=== PATIENT | female | born 1965 | race Two or more races ===

== ENCOUNTER 2017-02-03 10:17 | Emergency (ER) | payer MEDICAID, OTHER ==
[~2017-02-03] VITALS: Ht 157.5 cm; Wt 85.3 kg
[2017-02-03 10:57] VITALS: BP 136/81
[2017-02-03 12:01] LABS: Basophils # (auto) 0 uL; Basophils % (auto) 0.1 % (0.0-2.0); DEFINITIVE VIEW TRANSMISSION; Eosinophils # (auto) 0 uL; Hematocrit 36.4 % (36.0-46.0); Hemoglobin 11.6 g/dL (12.2-16.2); Lymphocytes # (auto) 1.5 uL; Lymphocytes % (auto) 6.6 % (10.0-50.0); Mean Corpuscular Hemoglobin 23.7 pg (28.0-32.0); Mean Corpuscular Hgb Conc. 31.9 g/dL (32.0-36.0); Mean Corpuscular Volume 74.4 fL (80.0-100.0); Mean Platelet Volume 8.2 fL (7.4-10.4); Monocytes # (auto) 0.9 uL; Neutrophils # (auto) 20.4 uL; Neutrophils % (auto) 89.3 % (37.0-80.0); Platelet Count (auto) 486 10^3/uL (140-450); Red Cell Distribution Width 16.4 % (11.6-16.0); White Blood Cell 22.8 10^3/uL (4.4-10.8)
[2017-02-03] MEDS ORDERED: LIDOCAINE VISCOUS 2% 15ML UD PO ONE (13:00)
[2017-02-03 13:13] LABS: Albumin 3.3 g/dL (3.4-5.0); BUN/Creatinine Ratio 9.2; Bilirubin, Total 0.4 mg/dL (0.2-1.0); Potassium 3.9 mmol/L (3.5-5.1); Total Protein 8.6 g/dL (6.4-8.2)
[2017-02-03 14:49] LABS: Urine Bilirubin Negative (Negative); Urine Color Yellow (Yellow); Urine Ketone Negative (Negative); Urine Nitrite Negative (Negative); Urine RBC 1 /hpf (0 - 4); Urine Squamous Epithelial Cell FEW /hpf (<5); Urine Urobilinogen Normal (Negative); Urine pH 6.5 (5.0-8.0)
[2017-02-03 14:58] LABS: Urine Blood 1+ /uL (Negative); Urine Glucose 3+ mg/dL (Normal)
== END 2017-02-03 15:11 | disposition home or self-care (01) ==
LOC: ER 10:32
DX: J03.90 Acute tonsillitis, unspecified (principal); E11.9 Type 2 diabetes mellitus without complications
CPT/HCPCS: 36415; 71020; 80053; 81001; 85025

== ENCOUNTER 2018-05-13 16:45 | Inpatient (IN) | payer SELFPAY ==
[~2018-05-13] VITALS: Ht 154.9 cm; Wt 78.6 kg
[2018-05-13 17:49] LABS: Basophils % (auto) 0.6 % (0.0-2.0); Eosinophils # (auto) 0.1 uL; Monocytes # (auto) 0.5 uL; White Blood Cell 8.5 10^3/uL (4.4-10.8)
[2018-05-13 17:51] LABS: Basophils # (auto) 0 uL; Eosinophils % (auto) 0.8 % (0.0-7.0); Hematocrit 23.2 % (36.0-46.0); Lymphocytes # (auto) 2.3 uL; Lymphocytes % (auto) 26.9 % (10.0-50.0); Mean Corpuscular Hemoglobin 15.3 pg (28.0-32.0); Mean Corpuscular Volume 54.7 fL (80.0-100.0); Monocytes % (auto) 5.5 % (0.0-12.0); Neutrophils # (auto) 5.6 uL; Neutrophils % (auto) 66.2 % (37.0-80.0); Nucleated Red Blood Cells % 0.1 %; Platelet Count (auto) 284 10^3/uL (140-450); Red Blood Cells 4.24 10^6/uL (4.0-5.20)
[2018-05-13 17:58] LABS: Red Cell Distribution Width 22.2 % (11.8-14.3)
[2018-05-13] MEDS ORDERED: ASPirin 81 mg TAB PO ONE (18:00)
[2018-05-13 18:01] LABS: Hemoglobin 6.5 g/dL (12.2-16.2)
[2018-05-13 18:02] LABS: Alanine Aminotransferase 26 U/L (13-56); Albumin 3.1 g/dL (3.4-5.0); Alkaline Phosphatase 161 U/L (45-117); Anion Gap 8 (5-15); Aspartate Aminotransferase 23 U/L (15-37); BUN/Creatinine Ratio 15.9; Bilirubin, Total 0.2 mg/dL (0.2-1.0); Blood Urea Nitrogen 10 mg/dL (7-18); Calcium 8.8 mg/dL (8.5-10.1); Carbon Dioxide 27 mmol/L (21-32); Chloride 102 mmol/L (98-107); GFR African American 129 mL/min; GFR Non-African American 106 mL/min; Glucose 291 mg/dL (74-106); Magnesium 2.2 mg/dL (1.6-2.6); Potassium 3.7 mmol/L (3.5-5.1); Sodium 137 mmol/L (136-145); Total Protein 7.8 g/dL (6.4-8.2)
[2018-05-13 18:09] LABS: Urine Bacteria FEW /hpf (None Seen); Urine Blood Negative /uL (Negative); Urine Budding Yeast FEW /hpf (None Seen); Urine Specific Gravity 1.027 (1.001-1.035); Urine WBC 4 /hpf (0 - 5)
[2018-05-13 18:13] LABS: INR 0.92 (0.9-1.15); Partial Thromboplastin Time 23.5 sec (23.78-33.04); Prothrombin Time 9.9 sec (9.27-12.13)
[2018-05-13] MEDS ORDERED: NITROGLYCERIN 0.4 MG SL TAB SL PRN (18:15)
[2018-05-13] MEDS ORDERED: LORazepam 0.5 MG TAB PO PRN (18:15)
[2018-05-13] MEDS ORDERED: MORPHINE SULF(PF) 0.5MG/ML 10ML VIAL IV PRN (18:15)
[2018-05-13] MEDS ORDERED: PANTOPRAZOLE 40 MG/10 ML VIAL IV ONE (18:15)
[2018-05-13] MEDS ORDERED: ACETAMINOPHEN 500 MG TAB PO PRN (18:15)
[2018-05-13] MEDS ORDERED: DEXTROSE (50%) 50ML SYRG IV PRN (18:15)
[2018-05-13] MEDS ORDERED: TEMAZEPAM 15 MG CAP PO PRN (18:15)
[2018-05-13] MEDS ORDERED: LACTULOSE 20Gm/30ML SOLN PO PRN (18:15)
[2018-05-13] MEDS ORDERED: HYDROcodone-ACET 5/325MG TAB PO PRN (18:15)
[2018-05-13] MEDS ORDERED: LABETALOL HCL 5 MG/ML ML 20ML VIAL IV PRN (18:15)
[2018-05-13] MEDS: SODIUM CHLORIDE 0.9% 1,000 ML IV SCH ×2 (18:38→20:23)
[2018-05-13 19:08] LABS: Alcohol, Urine < 3.0 mg/dL (0-5); Amphetamine Screen, Urine NEGATIVE (NEGATIVE); Barbiturate Scree,Urine NEGATIVE (NEGATIVE); Benzodiazephine Screen, Urine NEGATIVE (NEGATIVE); Cannabinoid Screen, Urine NEGATIVE (NEGATIVE); Cocaine Screen, Urine NEGATIVE (NEGATIVE); Opiate Scree,Urine NEGATIVE (NEGATIVE); Phencyclidine Screen, Urine NEGATIVE (NEGATIVE)
[2018-05-13 19:09] LABS: % Iron Saturation 2.8 % (15-50)
[2018-05-13] MEDS ORDERED: LORazepam 2MG/ML-1ML VIAL IV PRN (19:15)
[2018-05-13 19:21] LABS: Carcinoembryonic Antigen 1.63 ng/mL (<5.0 OR =); Folate (Folic Acid) 15.69 ng/mL (5.38-24)
[2018-05-13 19:47] LABS: CRP High Sensitivity 2.17 mg/dL (< 0.3)
[2018-05-13] MEDS: ACCU-CHEK COMFORT CURVE STRIP VI SCH ×2 (20:24→23:34)
[2018-05-13] MEDS: InsuLIN REG 1unit/0.01ml Soln (100units/ml) SC SCH ×2 (20:24→23:34)
[2018-05-13 20:40] LABS: Cholesterol 121 mg/dL (< 200); HDL Cholesterol 26 mg/dL (40-59); LDL Cholesterol 78 mg/dL (< 100); Triglycerides 228 mg/dL (< 150)
[2018-05-13 21:32] VITALS: BP 131/73
[2018-05-13 21:42] VITALS: BP 131/73
[2018-05-13 21:45] VITALS: BP 116/66
[2018-05-13] MEDS ORDERED: ATORVASTATIN 20 MG TAB PO SCH (22:00)
[2018-05-13] MEDS: ATORVASTATIN 20 MG TAB PO SCH (22:16)
[2018-05-13 22:37] VITALS: BP 153/88
[2018-05-13 23:36] VITALS: BP 134/80
[2018-05-13 23:43] VITALS: BP 128/76
[2018-05-14] VITALS (7 sets, daily range): BP systolic 129–155; BP diastolic 44–87
[2018-05-14] MEDS: ACCU-CHEK COMFORT CURVE STRIP VI SCH ×5 (05:00→20:58)
[2018-05-14] MEDS: InsuLIN REG 1unit/0.01ml Soln (100units/ml) SC SCH ×5 (05:00→20:58)
[2018-05-14 06:13] LABS: Basophils # (auto) 0 uL; Eosinophils # (auto) 0.1 uL; Hematocrit 31.1 % (36.0-46.0); Hemoglobin 9.2 g/dL (12.2-16.2); Mean Corpuscular Hgb Conc. 29.6 g/dL (32.0-36.0); Monocytes # (auto) 0.4 uL; Neutrophils # (auto) 5.8 uL; Neutrophils % (auto) 69.8 % (37.0-80.0); Nucleated Red Blood Cells % 0.2 %; White Blood Cell 8.3 10^3/uL (4.4-10.8)
[2018-05-14 06:15] LABS: Basophils % (auto) 0.4 % (0.0-2.0); Lymphocytes % (auto) 23.9 % (10.0-50.0); Mean Corpuscular Hemoglobin 18.2 pg (28.0-32.0); Mean Corpuscular Volume 61.5 fL (80.0-100.0); Monocytes % (auto) 4.9 % (0.0-12.0); Platelet Count (auto) 276 10^3/uL (140-450); Red Blood Cells 5.05 10^6/uL (4.0-5.20)
[2018-05-14 06:45] LABS: Cholesterol 123 mg/dL (< 200); HDL Cholesterol 30 mg/dL (40-59); LDL Cholesterol 85 mg/dL (< 100); Triglycerides 146 mg/dL (< 150)
[2018-05-14] MEDS: ASPirin-EC 81 mg tab PO SCH (10:04)
[2018-05-14] MEDS: PANTOPRAZOLE 40 MG TAB PO SCH (10:04)
[2018-05-14] MEDS ORDERED: CAPTOPRIL 25 MG TAB PO PRN (11:30)
[2018-05-14 12:13] LABS: Hematocrit 28.7 % (36.0-46.0); Hemoglobin 8.4 g/dL (12.2-16.2)
[2018-05-14] MEDS: SODIUM CHLORIDE 0.9% 1,000 ML IV SCH (20:58)
[2018-05-14] MEDS: ATORVASTATIN 20 MG TAB PO SCH (21:03)
[2018-05-15] MEDS: InsuLIN REG 1unit/0.01ml Soln (100units/ml) SC SCH ×7 (00:38→23:58)
[2018-05-15] MEDS: SODIUM CHLORIDE 0.9% 1,000 ML IV SCH ×3 (00:38→20:15)
[2018-05-15] MEDS: ACCU-CHEK COMFORT CURVE STRIP VI SCH ×7 (03:52→23:58)
[2018-05-15 06:24] VITALS: BP 140/77
[2018-05-15 08:09] LABS: Basophils # (auto) 0 uL; Eosinophils # (auto) 0.1 uL; Hemoglobin 8.4 g/dL (12.2-16.2); Monocytes # (auto) 0.5 uL; White Blood Cell 8.5 10^3/uL (4.4-10.8)
[2018-05-15 08:13] LABS: Basophils % (auto) 0.3 % (0.0-2.0); Eosinophils % (auto) 1.3 % (0.0-7.0); Hematocrit 28.6 % (36.0-46.0); Lymphocytes # (auto) 2.3 uL; Lymphocytes % (auto) 27.6 % (10.0-50.0); Mean Corpuscular Hemoglobin 17.8 pg (28.0-32.0); Mean Corpuscular Hgb Conc. 29.3 g/dL (32.0-36.0); Mean Corpuscular Volume 60.7 fL (80.0-100.0); Monocytes % (auto) 5.7 % (0.0-12.0); Neutrophils # (auto) 5.6 uL; Neutrophils % (auto) 65.1 % (37.0-80.0); Nucleated Red Blood Cells % 0.2 %; Platelet Count (auto) 250 10^3/uL (140-450); Red Blood Cells 4.72 10^6/uL (4.0-5.20)
[2018-05-15] MEDS: ASPirin-EC 81 mg tab PO SCH (08:23)
[2018-05-15] MEDS: PANTOPRAZOLE 40 MG TAB PO SCH (08:23)
[2018-05-15 08:26] LABS: Red Cell Distribution Width 31.6 % (11.8-14.3)
[2018-05-15 08:29] LABS: BUN/Creatinine Ratio 19.6; Calcium 8.5 mg/dL (8.5-10.1); Potassium 3.7 mmol/L (3.5-5.1)
[2018-05-15 09:00] VITALS: BP 131/71
[2018-05-15 13:00] VITALS: BP 135/91
[2018-05-15] MEDS ORDERED: METF-370 PO (16:17)
[2018-05-15] MEDS ORDERED: ASPI-231 PO (16:19)
[2018-05-15] MEDS ORDERED: GLIP-115 PO (16:19)
[2018-05-15 17:00] VITALS: BP 134/75
[2018-05-15 22:00] VITALS: BP 136/60
[2018-05-15] MEDS: ATORVASTATIN 20 MG TAB PO SCH (22:04)
[2018-05-16] MEDS: ACCU-CHEK COMFORT CURVE STRIP VI SCH ×4 (04:00→16:17)
[2018-05-16] MEDS: InsuLIN REG 1unit/0.01ml Soln (100units/ml) SC SCH ×4 (04:35→16:17)
[2018-05-16 05:10] VITALS: BP 131/65
[2018-05-16] MEDS: SODIUM CHLORIDE 0.9% 1,000 ML IV SCH ×2 (05:47→16:17)
[2018-05-16] MEDS: ASPirin-EC 81 mg tab PO SCH (08:11)
[2018-05-16 08:12] LABS: Basophils # (auto) 0 uL; White Blood Cell 8.2 10^3/uL (4.4-10.8)
[2018-05-16] MEDS: PANTOPRAZOLE 40 MG TAB PO SCH (08:12)
[2018-05-16 08:14] LABS: Basophils % (auto) 0.6 % (0.0-2.0); Eosinophils # (auto) 0.1 uL; Eosinophils % (auto) 1.4 % (0.0-7.0); Hematocrit 29.6 % (36.0-46.0); Hemoglobin 8.6 g/dL (12.2-16.2); Lymphocytes % (auto) 24.7 % (10.0-50.0); Mean Corpuscular Hemoglobin 17.7 pg (28.0-32.0); Mean Corpuscular Volume 61.1 fL (80.0-100.0); Monocytes # (auto) 0.5 uL; Monocytes % (auto) 5.8 % (0.0-12.0); Neutrophils # (auto) 5.5 uL; Neutrophils % (auto) 67.5 % (37.0-80.0); Nucleated Red Blood Cells % 0.1 %; Platelet Count (auto) 255 10^3/uL (140-450); Red Blood Cells 4.85 10^6/uL (4.0-5.20)
[2018-05-16 08:18] LABS: Red Cell Distribution Width 31.8 % (11.8-14.3)
[2018-05-16 08:29] LABS: BUN/Creatinine Ratio 25.5; Calcium 8.4 mg/dL (8.5-10.1)
[2018-05-16 09:00] VITALS: BP 114/62
[2018-05-16] MEDS ORDERED: LORazepam 2MG/ML-1ML VIAL IV ONE (11:30)
[2018-05-16 13:00] VITALS: BP 135/74
[2018-05-16 17:00] VITALS: BP 151/78
== END 2018-05-16 17:26 | disposition home or self-care (01) | DRG 761 ==
LOC: ER 16:45 → TELE 16:46 → DOU IN ICU 22:38 → TELE-CENTR 05-14 16:52
PROVIDERS: ADMIT Internal Medicine; ATTEND Internal Medicine
PROC: 30233N1 Transfusion of Nonautologous Red Blood Cells into Peripheral Vein, Percutaneous Approach (ICD-10-PCS; principal; 2018-05-13)
DX: N92.0 Excessive and frequent menstruation with regular cycle (principal); D64.9 Anemia, unspecified; E11.65 Type 2 diabetes mellitus with hyperglycemia; E66.9 Obesity, unspecified; Z68.32 Body mass index [BMI] 32.0-32.9, adult; F17.210 Nicotine dependence, cigarettes, uncomplicated; I10 Essential (primary) hypertension; Z79.82 Long term (current) use of aspirin; Z79.899 Other long term (current) drug therapy; Z86.73 Personal history of transient ischemic attack (TIA), and cerebral infarction without residual deficits; Z83.3 Family history of diabetes mellitus
CPT/HCPCS: 36415; 36430; 70450; 70551; 71045; 76830; 76856; 80048; 80053; 80061; 80307; 81001; 82150; 82270; 82378; 82550; 82607; 82746; 82962; 83036; 83540; 83550; 83690; 83735; 84443; 84484; 85014; 85018; 85025; 85045; 85610; 85652; 85730; 86141; 86850; 86900; 86901; 86920; 87081; 93005; 93306; 93886; 94660; 94761; 96374; 99291; C9113; J1815

== ENCOUNTER 2018-12-26 11:04 | Emergency (ER) | payer MEDICAID ==
[~2018-12-26] VITALS: Ht 157.5 cm; Wt 81.6 kg
[~2018-12-26 11:04] MED LIST: ASPI-231 PO; GLIP-115 PO; METF-370 PO
[2018-12-26 12:12] LABS: Basophils # (auto) 0.1 uL; Basophils % (auto) 0.9 % (0.0-2.0); Eosinophils # (auto) 0.2 uL; Eosinophils % (auto) 1.8 % (0.0-7.0); Lymphocytes # (auto) 1.6 uL; Neutrophils # (auto) 6.3 uL
[2018-12-26 12:16] LABS: Hematocrit 25.6 % (36.0-46.0); Mean Corpuscular Hemoglobin 22.5 pg (28.0-32.0); Mean Corpuscular Hgb Conc. 31.2 g/dL (32.0-36.0); Mean Corpuscular Volume 72.3 fL (80.0-100.0); Monocytes # (auto) 0.3 uL; Monocytes % (auto) 4.1 % (0.0-12.0); Neutrophils % (auto) 74.2 % (37.0-80.0); Platelet Count (auto) 443 10^3/uL (140-450); Red Blood Cells 3.54 10^6/uL (4.0-5.20); White Blood Cell 8.4 10^3/uL (4.4-10.8)
[2018-12-26 12:23] LABS: Albumin 3.2 g/dL (3.4-5.0); Anion Gap 7 (5-15); Blood Urea Nitrogen 10 mg/dL (7-18); Calcium 8.7 mg/dL (8.5-10.1); Carbon Dioxide 25 mmol/L (21-32); Chloride 103 mmol/L (98-107); Glucose 217 mg/dL (74-106); Magnesium 2.1 mg/dL (1.6-2.6); Sodium 135 mmol/L (136-145)
[2018-12-26 12:29] LABS: Alanine Aminotransferase 22 U/L (13-56); Alkaline Phosphatase 150 U/L (45-117); Aspartate Aminotransferase 19 U/L (15-37); BUN/Creatinine Ratio 13.3; Bilirubin, Total 0.2 mg/dL (0.2-1.0); GFR African American 105 mL/min; GFR Non-African American 87 mL/min; Total Protein 8.1 g/dL (6.4-8.2)
[2018-12-26 12:33] LABS: Urine Bacteria NONE SEEN /hpf (None Seen); Urine Blood 1+ /uL (Negative); Urine Specific Gravity 1.002 (1.001-1.035); Urine WBC <1 /hpf (0 - 5)
[2018-12-26 12:50] LABS: Red Cell Distribution Width 20.7 % (11.8-14.3)
[2018-12-26 15:51] VITALS: BP 125/64
== END 2018-12-26 16:12 | disposition home or self-care (01) ==
LOC: ER 11:07
DX: N93.8 Other specified abnormal uterine and vaginal bleeding (principal); E11.9 Type 2 diabetes mellitus without complications; F17.210 Nicotine dependence, cigarettes, uncomplicated; Z79.82 Long term (current) use of aspirin; Z79.84 Long term (current) use of oral hypoglycemic drugs; Z86.2 Personal history of diseases of the blood and blood-forming organs and certain disorders involving the immune mechanism
CPT/HCPCS: 36415; 71045; 74176; 80053; 81001; 83735; 84484; 85025; 85379; 86850; 86900; 86901; 93005

== ENCOUNTER 2025-11-12 09:27 | Outpatient (CLI) | payer MEDICAID ==
[~2025-11-12] VITALS: Ht 154.9 cm; Wt 81.2 kg
[~2025-11-12 09:27] MED LIST changes: -ASPI-231 PO; +ASPI1TAB20 PO; -GLIP-115 PO; +GLIP5TAB21 PO
--- NOTE | 2025-11-23 13:41 | DVHSR ---
APPROVED REPORT Exam: Nuclear Stress Test Indication: Chest pain, Dyspnea, Dizziness Ht: 5 ft 1 in Wt: 179 lbs BSA: 1.80 m2 HR: 75 bpm BP: 122/64 mmHg BMI: 33.81 Rhythm: NSR Medical History Medical History: HTN, Hypercholesterolemia, Diabetes Medications: Plavix, Mirabegron, Lisinopril, Atorvastatin, Hydroxyzine, Jardiance, Metformin, Sertraline, Amlodipine, [place] 3, Omeprazole, Simethicone, Gabapentin, Ozempic Allergies: Morphine, Codeine Stress Test Details Stress Test: Exercise stress testing was performed using a [place] protocol. HR Resting HR: 75 bpm Max Heart Rate (APMHR): 162.775669 bpm Max HR Achieved: 148 bpm Target HR (85% APMHR): 137.070676 bpm % of APMHR: 91.36 Recovery HR: 93 bpm HR response to stress: Normal HR response to stress BP Resting BP: 122/64 mmHg Max BP: 207/79 mmHg Recovery BP: 134/66 mmHg BP response to stress: exaggerated response ECG Resting ECG: Sinus Rhythm Stress ECG: Sinus Tachycardia Arrhythmia: PVC, PAC Recovery ECG: Sinus Rhythm Clinical Reason for Termination: target HR achieved Stress Symptoms: mild chest pain, dyspnea Exercise duration: 5 min 59 sec Exercise capacity: 7.00 METs Symptoms resolved during recovery. Stress ECG Conclusion NON ISCHEMIC CLINICAL RESPONSE NON ISCHEMIC ECG RESPONSE NON ISCHEMIC CARDIOLITE PERFUSION SCAN EF >55% NM EXAM: Myocardial Perfusion REST/STRESS Imaging Protocol: Rest Tc-99m/Stress Tc-99m 1 day Resting Data Rest SPECT myocardial perfusion imaging was performed in supine position 30 minutes following the intravenous injection of 10.65 mCi of Tc-99m Sestamibi. Time of rest injection: 0945 Date: 11/12/2025 Time of rest imagin Date: 11/12/2025 Administration Route: IV Administration Site: Left AC Exercise Stress At peak stress, the patient was injected intravenously with 32.7 mCi of Tc-99m Sestamibi. Time of stress injection: 1115 Date: 11/12/2025 Time of stress imagin Date: 11/12/2025 Administration Route: IV Administration Site: Left AC Heart Rate at time of stress injection: 139 bpm. Patient continued to exercise for 1 minute(s). Gated Stress SPECT was performed 15 minutes after stress injection. The images were gated to evaluate regional wall motion and calculate left ventricular ejection fraction. Comments Cardiolite injection at 5 minutes, 23 seconds into test. Nuclear Conclusion NON ISCHEMIC CLINICAL RESPONSE NON ISCHEMIC ECG RESPONSE NON ISCHEMIC CARDIOLITE PERFUSION SCAN EF >55%
== END 2025-11-12 17:00 | disposition home or self-care (01) ==
LOC: Rad HDHVI 09:27
PROVIDERS: ATTEND Internal Medicine Cardiovascular Disease
DX: I49.1 Atrial premature depolarization (principal); I49.3 Ventricular premature depolarization; R00.0 Tachycardia, unspecified; R07.89 Other chest pain; R06.00 Dyspnea, unspecified; R42 Dizziness and giddiness; E11.40 Type 2 diabetes mellitus with diabetic neuropathy, unspecified; I10 Essential (primary) hypertension; E78.00 Pure hypercholesterolemia, unspecified; R06.02 Shortness of breath; Z88.5 Allergy status to narcotic agent
CPT/HCPCS: 78452; 93017; A9500; 96374